=== PATIENT | female | born 1945 | race African-American/Black ===

== ENCOUNTER 2017-07-30 12:16 | Emergency (ER) | payer MEDICARE ==
[~2017-07-30] VITALS: Ht 172.7 cm; Wt 72.6 kg
[2017-07-30 13:04] VITALS: BP 135/113
--- NOTE | 2017-07-30 13:09 | PHYS DOC ---
Adult General Chief Complaint Chief Complaint: LOWER EXT PAIN HPI HPI Patient is a 72 year old F who presents with left lower leg pain. Patient states for the past week she's been having sharp shooting pain starting from her lower back down her left leg. Patient states the pain is worse when she gets up and walks. Patient has severe arthritis. Patient denies any trauma. Patient states the pain was worse today and therefore came the emergency room. Patient denies any fevers. Patient denies any bowel or bladder incontinence. Patient denies any difficult he starting or stopping urination. Patient denies any chest pain or shortness of breath. Patient denies abdominal pain. Patient denies any dysuria. Patient has no other complaints. Review of Systems Review of Systems GEN: Denies fevers, chills, sweats HEENT: Denies blurred vision, sore throat CV: Denies chest pain RESP: Denies shortness of air, cough GI: Denies n/v/d NEURO: Denies confusion, dizziness MSK: Lower back pain Current Medications Current Medications Current Medications Medications (Trade) Dose Ordered Sig/Lane Start Time Stop Time Status Last Admin Dose Admin Dexamethasone Sodium Phosphate (Decadron) 10 mg 1X ONCE 07/30/17 13:15 07/30/17 13:16 DC 07/30/17 13:26 10 MG Diazepam (Valium) 5 mg 1X ONCE 07/30/17 13:15 07/30/17 13:16 DC 07/30/17 13:25 5 MG Ketorolac Tromethamine (Toradol Im) 60 mg 1X ONCE 07/30/17 13:15 07/30/17 13:16 DC 07/30/17 13:26 60 MG Allergies Allergies Allergies Coded Allergies Type Severity Reaction Last Updated Verified No Known Drug Allergies 07/30/17 No Physical Exam Physical Exam GEN.: No apparent distress. Alert and oriented. HEENT: Head is normocephalic, atraumatic NECK: Supple. LUNGS: CTAB. HEART: RRR, S1, S2 present. Peripheral pulses intact ABDOMEN: Soft, nontender. Positive bowel sounds. EXTREMITIES: Without any cyanosis. NEUROLOGIC: Normal speech, normal tone, muscle strength 5 out of 5 lower extremity bilaterally, no saddle anesthesia PSYCHIATRIC: Normal affect, normal mood. SKIN: No ulcerations BACK: Positive tenderness palpation to the left SI joint and lumbar left paraspinous muscles, reproducible pain with straight leg raise at 40 on the left Current Patient Data Vital Signs Vital Signs Date Time Temp Pulse Resp B/P (MAP) Pulse Ox O2 Delivery O2 Flow Rate FiO2 07/30/17 13:04 98.2 90 18 99 Room Air 98.2 EKG EKG [] Radiology/Procedures Radiology/Procedures [] Course & Med Decision Making Course & Med Decision Making Pertinent Labs and Imaging studies reviewed. (See chart for details) ED course: Patient was seen and examined emergency room 60 mg of Toradol, 5 mg of Valium, 10 mg of Decadron were given 1407: Patient was reevaluated when she feels much better and is able to get up and walk without any difficulties. Patient states she is ready go home. MDM: After reviewing the chart, CC/HPI/PMH, physical exam, I do not believe the patient sustained a significant back injury warranting further workup and/or admission at this time. Since the patient has no recent trauma to the back I do not believe radiological imaging is necessary at this time. We'll treat the patient with steroids, anti-inflammatory medication and a muscle relaxer and reevaluate. On reevaluation the patient feels much better and is ready go home. Additional verbal discharge instructions were provided to the patient and that if symptoms get worse or any new symptoms arise that are worrisome to the patient she is to return to the emergency room immediately [] Dragon Disclaimer Dragon Disclaimer This electronic medical record was generated, in whole or in part, using a voice recognition dictation system. Departure Departure Impression: Primary Impression: Lower back pain Additional Impression: Sciatica Disposition: 01 HOME, SELF-CARE Condition: IMPROVED Referrals: MIGUE BARBER JR, MD (PCP) Patient Instructions: Sciatica, [id number] Additional Instructions: Please follow-up with your family physician in the next one to 2 days for further evaluation and management and return if symptoms increase Scripts Diazepam (VALIUM) 5 Mg Tablet 5 MG PO TID for 5 Days, #15 TAB Prov: DENISSE HO DO 07/30/17 Prednisone (PREDNISONE) 50 Mg Tablet 1 TAB PO DAILY, #5 TAB Prov: DENISSE HO DO 07/30/17 Ibuprofen (IBUPROFEN) 800 Mg Tablet 800 MG PO PRN Q6HRS Y for INFLAMMATION for 10 Days, #40 TAB Prov: DENISSE HO DO 07/30/17 Problem Qualifiers DENISSE HO DO Jul 30, 2017 13:09
[2017-07-30] MEDS ORDERED: diazePAM 5 MG TABLET PO ONE (13:15)
[2017-07-30] MEDS ORDERED: DEXAMETHASONE SOD PHOS 4 MG/ML VIAL IM ONE (13:15)
[2017-07-30] MEDS ORDERED: KETOROLAC TROMETHAMINE 60 MG/2 ML INJ. IM ONE (13:15)
[2017-07-30] MEDS ORDERED: DIAZ5TAB PO (14:11)
[2017-07-30] MEDS ORDERED: PRED50TA PO (14:11)
[2017-07-30] MEDS ORDERED: IBUP-1060 PO (14:11)
== END 2017-07-30 14:26 | disposition home or self-care (01) ==
LOC: ER 12:16
DX: M54.42 Lumbago with sciatica, left side (principal); M79.662 Pain in left lower leg
CPT/HCPCS: 96372; 99284; J1100; J1885

== ENCOUNTER 2017-08-07 23:46 | Emergency (ER) | payer MEDICARE ==
[~2017-08-07] VITALS: Ht 172.7 cm; Wt 72.6 kg
[~2017-08-07 23:46] MED LIST: DIAZ5TAB PO; IBUP-1060 PO; PRED50TA PO
[2017-08-08 00:15] VITALS: BP 104/66
[2017-08-08] MEDS ORDERED: KETOROLAC 60 MG/2 ML INJ. IM ONE (01:30)
[2017-08-08] MEDS ORDERED: MORPHINE SULFATE 10 MG/ML VIAL. IM ONE (01:30)
[2017-08-08] MEDS ORDERED: HYDR-971 PO (01:48)
[2017-08-08] MEDS ORDERED: VALIUM10 MG PO (01:48)
--- NOTE | 2017-08-08 01:48 | PHYS DOC ---
Past Medical History Past Medical History: Hypertension Past Surgical History: No Surgical History Alcohol Use: None Drug Use: None Adult General Chief Complaint Chief Complaint: HIP PAIN HPI HPI Patient is a 72 year old female with history of hypertension who presents today with left hip pain radiating to the left lower extremity from sciatica that has been going on for 2 weeks. She states she has an appointment with her PCP next week. She states she was seen in the ED last week and was given ibuprofen, Valium and Medrol Dosepak which did not help with her pain. She denies any loss of bowel bladder function, denies any injury. Review of Systems Review of Systems Constitutional: Denies fever or chills [] GI: Denies abdominal pain, nausea, vomiting, bloody stools or diarrhea [] : Denies dysuria or hematuria [] Musculoskeletal: left hip pain radiating to the left lower extremity Integument: Denies rash or skin lesions [] Neurologic: Denies headache, focal weakness or sensory changes [] Current Medications Current Medications Current Medications Medications (Trade) Dose Ordered Sig/Lane Start Time Stop Time Status Last Admin Dose Admin Ketorolac Tromethamine (Toradol Im) 60 mg 1X ONCE 08/08/17 01:30 08/08/17 01:31 UNV Morphine Sulfate 5 mg 1X ONCE 08/08/17 01:30 08/08/17 01:31 UNV Allergies Allergies Allergies Coded Allergies Type Severity Reaction Last Updated Verified No Known Drug Allergies 07/30/17 No Physical Exam Physical Exam Constitutional: Well developed, well nourished, no acute distress, non-toxic appearance. [] Abdomen: Bowel sounds normal, soft, no tenderness, no masses, no pulsatile masses. [] Skin: Warm, dry, no erythema, no rash. [] Back: Moderate tenderness to the left SI joint, no CVA tenderness. Straight leg raises not attempted, patient is comfortable in the wheelchair Extremities: No tenderness, no cyanosis, no clubbing, ROM intact, no edema. [] Neurologic: Alert and oriented X 3, normal motor function, normal sensory function, no focal deficits noted. [] Psychologic: Affect normal, judgement normal, mood normal. [] Current Patient Data Vital Signs Vital Signs Date Time Temp Pulse Resp B/P (MAP) Pulse Ox O2 Delivery O2 Flow Rate FiO2 08/08/17 00:15 98.0 102 18 96 Room Air 98.0 EKG EKG [] Radiology/Procedures Radiology/Procedures [] Course & Med Decision Making Course & Med Decision Making Pertinent Labs and Imaging studies reviewed. (See chart for details) Patient has sciatic pain. She was seen in the ED a week ago and was sent home with ibuprofen and Valium and Medrol Dosepak which did not help with her symptoms. She has an appointment with her PCP next week. She was given a prescription for hydrocodone, and Valium in the ED. She was also encouraged to follow-up with her PCP as soon as possible. Dragon Disclaimer Dragon Disclaimer This electronic medical record was generated, in whole or in part, using a voice recognition dictation system. Departure Departure Impression: Primary Impression: Sciatica of left side Disposition: HOME, SELF-CARE Condition: STABLE Referrals: MIGUE BARBER JR, MD (PCP) follow up with your doctor in one week AYLIN CHIRINOS MD call his office for pain magement he will help with steriod injections Patient Instructions: Sciatica with [facility] Additional Instructions: You were seen for sciatica pain. Please follow-up with the primary care doctor as soon as possible. You can consider following up with the pain clinic doctor provided in your discharge paperwork. His name is Dr. Aylin Chirinos. Call his office for a follow up appointment as well. He will help with steroid injections if your primary care doctor does not do them. Scripts Diazepam (VALIUM) 10 Mg Tablet 10 MG PO TID, #30 TAB Prov: APRIL NATH CERTIFIED APPLIANCE SERVICE TECHNICIAN 08/08/17 Hydrocodone/Apap 5-325 (NORCO 5-325 TABLET) 1 Each Tablet 1 TAB PO Q4HRS, #30 TAB Prov: APRIL NATH APRN 08/08/17 APRIL NATH APRN Aug 08, 2017 01:48
[2017-08-08] MEDS ORDERED: diazePAM 5 MG TABLET PO ONE (02:00)
== END 2017-08-08 02:20 | disposition home or self-care (01) ==
LOC: ER 23:46
DX: M54.32 Sciatica, left side (principal); I10 Essential (primary) hypertension
CPT/HCPCS: 96372; 99284; J1885; J2270